=== PATIENT | female | born 1965 | race African-American/Black ===

== ENCOUNTER 2016-12-03 22:05 | Emergency (ER) | payer OTHER ==
[~2016-12-03] VITALS: Ht 160 cm; Wt 68.0 kg
[~2016-12-03 22:05] MED LIST: ATIVAN1 MG PO; HYDROCODON-ACE1 EAC5 PO; LIORESAL 10 MG10 MG PO; MOBIC15 MG PO; OPANA10 MG PO; PROZAC20 MG PO; WELLBUTRIN SR150 MG PO
[2016-12-03 22:32] VITALS: BP 137/91
[2016-12-03] MEDS ORDERED: PHENERGAN 25 MG25 M1 PO (22:35)
[2016-12-03] MEDS ORDERED: OLMSRTN-AMLDPN1 EACH PO (22:35)
[2016-12-03] MEDS ORDERED: PROZAC20 M1 PO (22:35)
== END 2016-12-03 22:38 | disposition left against medical advice (07) ==
LOC: ER 22:05
DX: G89.29 Other chronic pain (principal); M54.9 Dorsalgia, unspecified; I10 Essential (primary) hypertension; Z88.0 Allergy status to penicillin; Z88.6 Allergy status to analgesic agent

== ENCOUNTER → 2017-08-27 | Outpatient (CLI) | payer OTHER ==
[~2017-08-27] VITALS: Ht 167.6 cm; Wt 71.8 kg
[~2017-08-27] MED LIST changes: +AMLODIPINE BESY10 MG PO; +METHADONE HCL 110 M1 PO; +MOBIC7.5 MG PO; +OLMSRTN-AMLDPN1 EACH PO; +PHENERGAN 25 MG25 M1 PO; +PROZAC20 M1 PO; +TIZANIDINE HCL4 MG PO
--- NOTE | ~2017-08-27 | HPC ---
[facility] [address] [place] [address] PAIN MANAGEMENT CONSULTATION Name: MARIA BELTRAN Room #: REG LATRICIA LagunasJorgeHussein.#: [id number] Admission: 08/27/17 Attend Phys: Reji Villeda MD Discharge: Date of : 67 Report #: [id number] THIS REPORT FOR: //name// CC: Ezio Villeda DATE OF SERVICE: 08/27/2017 Followup visit for low back pain with radiation to both hips. I am seeing the patient today at the request of Dr. Loja. She was in our clinic on one other occasion, seen by Dr. Lazar. He attempted to perform diagnostic medial branch nerve blocks and because the patient did not tolerate even the local anesthetic, he aborted the procedure. She returns to pain clinic today for another go and an approach from our clinic to ease some of her pain. She complains of low back pain that radiates at this time into both hips. She has pain radiating in the lateral aspect of the thigh all the way to the knee. She describes it as constant, shooting and aching. Pain intensity is a 6/10. It is worse with standing or walking or prolonged sitting. Dr. Loja has provided her with hydrocodone 10/325 up to 3 tablets a day for morphine milligram equivalency of 30 MME per day. She appears to have used this medication safely and carefully and has not exceeded the doses provided by Dr. Loja. She understands that only one prescribing physician should be allowed. She is on a benzodiazepine, lorazepam for anxiety, but has taken this for a long time and the interaction between the opioid and the benzodiazepine seems to be reasonably safe. Chronic use is quite different from acute use, which can present significant problems. Because of longstanding history of depression, perhaps bipolar depression, she has also been on fluoxetine and Wellbutrin managed by a psychiatrist. Dr. Loja treats her hypertension with amlodipine. ALLERGIES: PENICILLIN, TRAMADOL, MEPERIDINE. PHYSICAL EXAMINATION: She is a somewhat anxious 52-year-old female. Blood pressure is 180/100, heart rate is 120, respirations 16. BMI is 25.6. She is able to move independently from sitting to standing position, but walks with a slow gait. The longer she walks the more normal her gait becomes. Pain is across her low back and she has some slow movement to an upright standing position. She has some flattening of the lower lordotic curve. Tenderness across the lumbosacral segment is noted. Bilateral straight leg raising reproduces pain into the buttock. Sensation and strength are judged to be within normal limits. Affect today is pleasant, but a bit weary given her more recent interaction with [address] [address] PAIN MANAGEMENT CONSULTATION Name: MARIA BELTRAN Room #: REG LATRICIA León#: [id number] Admission: 08/27/17 Attend Phys: Reji Villeda MD Discharge: Date of : 67 Report #: [id number] Lazar, which was a bit confrontational. IMPRESSION: 1. Low back pain with evidence of some lumbar radiculopathy. She also has lumbar spondylosis. 2. Bipolar depression. 3. Hypertension. 4. Management of opioid by the primary service under CDC guidelines with MME of 30. I think is a reasonable approach unless we can provide relief through injection therapy. I have recommended an epidural steroid injection. The patient will return to the clinic in 1-2 weeks for an L4-L5 injection. By: [id number] Reji Villeda MD /nt
[2017-08-27 13:34] VITALS: BP 180/100
== END ==
LOC: PAIN 01-29 11:14
DX: M47.26 Other spondylosis with radiculopathy, lumbar region (principal); I10 Essential (primary) hypertension; M54.5 Low back pain; F31.89 Other bipolar disorder; Z79.891 Long term (current) use of opiate analgesic

== ENCOUNTER → 2017-12-29 | Outpatient (CLI) | payer OTHER | LOC: RAD 13:13 | DX: Z12.31 Encounter for screening mammogram for malignant neoplasm of breast (principal) ==

== ENCOUNTER → 2018-01-14 | Outpatient (CLI) | payer OTHER | LOC: RAD 10:24 | DX: N60.02 Solitary cyst of left breast (principal) ==

== ENCOUNTER → 2019-05-16 | Outpatient (CLI) | payer OTHER | LOC: RAD 13:21 | DX: Z12.31 Encounter for screening mammogram for malignant neoplasm of breast (principal) ==